=== PATIENT | male | born 1975 | race Caucasian/White ===

== ENCOUNTER → 2019-06-10 12:48 | Outpatient (CLI) | payer BC, SELFPAY ==
--- NOTE | 2019-06-10 13:06 | US_ITS ---
PROCEDURE: US SOFT TISSUE HEAD AND NECK CLINICAL INDICATION: LUMP IN SCALP Palpable area in the skull COMPARISON: No exams were available for comparison FINDINGS: No discrete sonographic abnormality is evident. Technologist notes that the area can be felt however, no sonographic abnormalities apparent. No cystic lesions or soft tissue masses. IMPRESSION: Unremarkable ultrasound of the palpable area of the scalp. If there is indeed a palpable nodule then, would consider CT for further evaluation Dictated by: Alexander Tellez MD 06/10/2019 15:21 Electronically signed by Alexander Tellez MD in [place] 06/10/2019 15:21
== END ==
PROVIDERS: PCP Family Medicine; Visit Provider Nurse Practitioner
DX: R22.0 Localized swelling, mass and lump, head (principal)
CPT/HCPCS: 76536

== ENCOUNTER 2019-11-05 19:19 | Emergency (ER) | payer BC, SELFPAY ==
[2019-11-05 19:30] VITALS: BP 127/78; PULSE 86; RESP 15; TEMP 36.6; O2SAT 99; BMI 32.3
--- NOTE | 2019-11-05 20:00 | HMH.EDSKAF ---
ED Disposition Clinical Impression: Foreign body (FB) in soft tissue Disposition: Home, Self-Care Condition on Discharge: Good Instructions: DI for Skin Abscess Prescriptions: clindamycin HCL [Clindamycin HCl 300mg Cap] 300 mg PO Q6 10 Days #40 cap Transmission Status: Pending to [id number] clindamycin HCL [Clindamycin HCl 300mg Cap] 300 mg PO Q6 10 Days #40 cap Transmission Status: Pending to [id number] Referrals: Morgan David MD [Primary Care Provider] - - Critical Care Critical Care Time: No Attestation: On 11/05/19, the high probability of a clinically significant, sudden or life threatening deterioration of the following system(s) required my full and direct attention, intervention and personal management. The time I documented below is in addition to time spent performing reported procedures but includes the following listed in this critical care notation. Medical Decision Making - Medical Records Medical records reviewed: Yes: I reviewed the patient's medical records. - Adolfo Inquiry Pt receiving controlled substance: No Vital Signs: 11/05/19 19:30 Temperature 97.9 F Temperature Source Oral Pulse Rate [Right Brachial] 86 Respiratory Rate 15 Blood Pressure [Right Arm] 127/78 Blood Pressure Mean [Right Arm] 94 Blood Pressure Source [Right Arm] Automatic Cuff Blood Pressure Position [Right Arm] Sitting 02 Sat by Pulse Oximetry 99 Oxygen Delivery Method Room Air - Lab Data Lab results reviewed: Yes: I reviewed the patient's lab results. Orders (Tests/Meds): ED MEDICATIONS Discontinued Medications Generic Name Dose Route Start Last Admin Trade Name Freq PRN Reason Stop Dose Admin Tetanus/Reduced Diphtheria/Acell Pertussis 0.5 ml 11/05/19 19:35 Adacel Tdap 0.5ml Syringe IM 11/05/19 19:36 .ONCE ONE Skin/Abscess/FB HPI - General Chief complaint: Skin/Abscess/Foreign Body Stated complaint: AO [id number] fish hook in neck Time Seen by Provider: 11/05/19 19:19 Mode of Arrival: Ambulatory Source of Information: Patient Limitations: No Limitations Description of Symptoms (Recalled from ER Triage Doc. by RN): Patient reports he was fishing with some friends when his hook stuck, while pulling to break the line the hook came back and hung in the left side of his neck. - History of Present Illness HPI narrative: 44-year-old male presents with a fishhook in his neck. Otherwise no other acute issues.Patient denies any recent cough or shortness of breath, patient denies any sore throat or headache, patient denies any loss of taste or smell, patient denies any malaise or fatigue, patient denies any abdominal pain nausea vomiting or diarrhea. - Related Data Home Medications Medication Instructions Recorded Confirmed Fexofenadine/Pseudoephedrine 1 each PO DAILY 02/09/18 02/09/18 [Vi-D 24 Hour Tablet] Fluticasone Propionate [Flonase 1 spr NS BID 02/09/18 02/09/18 50mcg nasal spray 16gm] Omeprazole [Omeprazole 20mg Tab] 20 mg PO DAILY 02/09/18 02/09/18 Previous Rx's Medication Instructions Recorded Cyclobenzaprine HCl 10 mg PO TID PRN #10 tab 02/09/18 [Cyclobenzaprine 10mg Tab] Ibuprofen [Motrin 600mg 600 mg PO Q6HP PRN #12 tab 02/09/18 Tablet] clindamycin HCL [Clindamycin HCl 300 mg PO Q6 10 Days #40 cap 11/05/19 300mg Cap] clindamycin HCL [Clindamycin HCl 300 mg PO Q6 10 Days #40 cap 11/05/19 300mg Cap] Allergies Allergy/AdvReac Type Severity Reaction Status Date / Time Sulfa (Sulfonamide Allergy Unknown Verified 11/05/19 19:38 Antibiotics) [SULFA (SULFONAMIDE ANTIBIOTICS)] [facility] History - Hepatitis A Screen Drug use history?: No High risk sexual behaviors?: No History of sexually transmitted infection?: No Currently employed?: No Childcare worker?: No Do you have indoor plumbing?: Yes Do you have electricity?: Yes Attestation statement:: This patient has be
[2019-11-05 20:09] VITALS: BP 121/79; PULSE 73; RESP 18; TEMP 36.7; O2SAT 98
== END 2019-11-05 20:11 | disposition home or self-care (01) ==
PROVIDERS: Emergency Provider Family Medicine; PCP Family Medicine
DX: S10.95XA Superficial foreign body of unspecified part of neck, initial encounter (principal); W22.8XXA Striking against or struck by other objects, initial encounter; Y92.89 Other specified places as the place of occurrence of the external cause; Z23 Encounter for immunization
CPT/HCPCS: 10120; 90471; 90715; 99282

== ENCOUNTER → 2020-02-12 15:44 | Outpatient (CLI) | payer BC, SELFPAY ==
[2020-02-12 17:04] LABS: Coronavirus 19 IgG Antibody Negative (Negative); Coronavirus 19 IgM Antibody Negative (Negative)
== END ==
PROVIDERS: Visit Provider Internal Medicine Gastroenterology
DX: Z01.89 Encounter for other specified special examinations (principal); Z12.11 Encounter for screening for malignant neoplasm of colon; K92.1 Melena
CPT/HCPCS: 36415; 86328

== ENCOUNTER 2020-02-14 08:59 | Day surgery (SDC) | payer BC, SELFPAY ==
[2020-02-11 14:48] VITALS: BMI 32.3
[2020-02-14 09:21] VITALS: BP 132/82; PULSE 64; RESP 18; TEMP 36.9; O2SAT 99
[2020-02-14 10:26] VITALS: O2SAT 98
--- NOTE | 2020-02-14 10:39 | P.PCN_ITS ---
[facility] Procedure Note Procedure Note:: Upper Endoscopy Procedure Report: Esophagogastroduodenoscopy with cold biopsies Endoscopost: Moose Ibarra II, MD Referring Physician: Dannielle STALLINGS Date of Procedure: February 14, 2020 Equipment: Olympus GIF 180 standard upper endoscope Sedation: MAC sedation Indications: Mr. Valladares is a 45-year-old gentleman who was having rectal bleeding/hematochezia. He does state that he had this for more than a week and this has resolved approximately 1 month ago. The patient does have chronic GERD and has been on omeprazole for years. He reports no heartburn, reflux or dysphagia. He presently reports no abdominal pain or melena. He has had no indigestion or dyspepsia. This is his first upper endoscopy. He reports no weight loss. At the time of his bleeding he was having crampy abdominal pain and diarrhea which has resolved. Procedure: Prior to the procedure, a history and physical exam was performed, and patient's medications and allergies were reviewed. The risks, benefits and alternatives of the sedation and procedure were discussed with the patient. All questions were answered and informed consent was obtained. The patient was brought to the procedure room. Patient identification and proposed procedure were verified by the physician and the nurse. The patient was placed in a left lateral decubitus position and the scope was passed under direct vision. Throughout the procedure, the patient's blood pressure, pulse, and oxygen saturations were monitored continuously. The upper GI endoscopy was accomplished without difficulty. The patient tolerated the procedure well. Findings: The scope was passed directly into the upper esophagus and advanced to the third portion of the duodenum. The post bulbar duodenum and duodenal bulb were normal with normal mucosa and conniventes. The scope was withdrawn through a normal duodenal bulb and pylorus into the stomach. There was some bile reflux with linear reactive gastropathy of the antrum. Biopsies were obtained from the antrum. There were a few gastric fundic gland polyps in the body and fundus and the largest of which was removed via cold biopsy. Upon retroflexion there was no hiatal hernia. 2 biopsies were taken in the antrum and along the lesser curvature for histology to rule out gastritis and/or H pylori. The scope was then withdrawn into the esophagus. There was a serrated Z line and one short tongue of salmon-colored mucosa that was biopsied to rule out Bonds's esophagus. There was no evidence of reflux esophagitis or Schatzki's ring. The remainder of the esophageal mucosa was normal. Impression: 1. Nonerosive GERD 2. Gastric fundic gland polyps 3. Mild linear reactive gastropathy Plan: I will follow-up the biopsies. The patient does have chronic GERD and will continue PPI therapy. I will proceed with diagnostic colonoscopy.
--- NOTE | 2020-02-14 10:42 | P.PN_ITS ---
[facility] Anesthesia Checklist - Patient Identification Patient Identification: Arm Band, Verbal (Name & ) - Structural Data Admitted From: Home Planned Operative Procedure/s: EGD, Colonoscopy Consent for Planned Operative Procedure(s) Verified: Yes Verified Documents: Surgical Consent, History and Physical - NPO Status Verified Time NPO: 00:00 - Chart Verification Results Verified: None - Additional verifications Anesthesia Reactions: No - Airway Assessment C-Spine Mobility Assessed: Yes TMJ Mobility Assessed: Yes Dentition: Good Dentition - Neurological Assessment Level of Consciousness: Awake, Alert, Appropriate, Follows Commands Hx Seizures: No Numbness or tingling in extremities: No - Anesthesia Plan Anesthesia Risk discussed: Yes Anesthesia Plan: Verified ASA Class: II Anesthesia Type: MAC [facility] History I have reviewed the patient's past medical history: Yes Medical History: Reports:: Asthma, Gastroesophageal Reflux Disease(GERD) Denies:: Cancer, Diabetes Mellitus Type 1, Diabetes Mellitus Type 2, Internal Pacemaker, MRSA, Seizures *Have you ever received a pneumonia vaccine?: No *Have you received a flu vaccine this season?: No Comment:: Obesity Anesthesia experience/problems:: None Other Surgeries: No: Pacemaker Amputation: No Fractures: No Comment: Hand sx - *Social History Last grade of school completed: High school graduate Smoking Status: Never smoker Alcohol Intake: never Substance Use Type: denies use *Occupational Status:: employed Housing: house Household Members: spouse *Travel in the last 8 weeks: Inside the [facility] Family Hx:: Other (NA)
[2020-02-14 11:00] VITALS: BP 121/73; PULSE 64; RESP 18; TEMP 36.6; O2SAT 97
--- NOTE | 2020-02-14 11:00 | P.PCN_ITS ---
[facility] Procedure Note Procedure Note:: Colonoscopy Procedure Report: Colonoscopy with cold snare polypectomy Endoscopist: Moose Ibarra II, MD Referring physician: Dannielle STALLINGS Date of Procedure: February 14, 2020 Equipment: Olympus 180 variable stiffness pediatric colonoscope Sedation: MAC sedation Indication: Mr. Valladares is a 45-year-old gentleman with bright red rectal bleeding that occurred for almost a week just over a month ago. I believe that he did have CT imaging to my knowledge but the report is not available. The patient does state that blood filled the commode. He had cramps and abdominal pain at that time. He did attribute this to an antibiotic (? Clindamycin). This resolved when he did discontinue this. He reports no present abdominal pain, weight loss, rectal bleeding or change in bowel habits. He reports no family history of colon cancer. This is his first colonoscopy performed for diagnostic purposes. Procedure: Prior to the procedure, a history and physical exam was performed, and patient's medications and allergies were reviewed. The risks, benefits and alternatives of the sedation and procedure were discussed with the patient. All questions were answered and informed consent was obtained. The patient was brought to the procedure room. Patient identification and proposed procedure were verified by the physician and the nurse. The patient was placed in a left lateral decubitus position and the scope was passed under direct vision. Throughout the procedure, the patient's blood pressure, pulse, and oxygen saturations were monitored continuously. The colonoscopy was accomplished without difficulty. The patient tolerated the procedure well. Findings: On digital rectal examination there was normal rectal tone. There were no external hemorrhoids. The colonoscope was introduced through the anal canal to the rectum and advanced to the cecum. The ileocecal valve and appendiceal orifice were identified. The scope was advanced a short distance into the ileum which appeared grossly normal. The scope was then withdrawn into the colon. There were 2 diminutive polyps in the transverse (3 mm) and rectum (3 mm) which were both removed via cold snare polypectomy. The remaining cecum, ascending, transverse, descending, sigmoid and rectum were grossly normal. There were no other mucosal abnormalities identified. Upon retroflexion within the rectum there were grade 1-2 internal hemorrhoids.The preparation was excellent throughout with Esmond Preparation Score of 9. The cecal time was 12 minutes. Impression: 1. Diminutive colonic polyps x2 2. Grade 1-2 internal hemorrhoids Plan: I will follow-up the polyp histology and recommend repeat screening/surveillance colonoscopy again in 7 to 10 years based upon the pathology. I would encourage bulk fiber supplementation on a maintenance basis.
[2020-02-14 11:10] VITALS: BP 111/70; PULSE 57; RESP 18; O2SAT 97
[2020-02-14 11:20] VITALS: BP 134/72; PULSE 67; RESP 18; O2SAT 100
[2020-02-14 11:40] VITALS: BP 118/72; PULSE 66; RESP 18; O2SAT 99
== END 2020-02-14 11:40 | disposition home or self-care (01) ==
LOC: OUTP 09:02
PROVIDERS: PCP Family Medicine; Visit Provider Internal Medicine Gastroenterology
PROC: 0DJ08ZZ Inspection of Upper Intestinal Tract, Via Natural or Artificial Opening Endoscopic (ICD-10-PCS; CPT 43235; principal; 2020-02-14 10:00)
DX: K63.5 Polyp of colon; K64.0 First degree hemorrhoids; K21.9 Gastro-esophageal reflux disease without esophagitis; K31.7 Polyp of stomach and duodenum; K31.9 Disease of stomach and duodenum, unspecified; J45.909 Unspecified asthma, uncomplicated; Z80.9 Family history of malignant neoplasm, unspecified; Z83.3 Family history of diabetes mellitus; Z88.2 Allergy status to sulfonamides; Z79.899 Other long term (current) drug therapy
CPT/HCPCS: 45385; 43239

== ENCOUNTER 2021-08-23 15:30 | Emergency (ER) | payer BC, SELFPAY ==
[2021-08-23 16:30] VITALS: BP 122/77; PULSE 74; RESP 18; TEMP 36.8; O2SAT 100; BMI 33.0
[2021-08-23 17:45] VITALS: BP 0/0; PULSE 0; RESP 0; TEMP -17.7; TEMP 0
== END 2021-08-23 17:49 | disposition left against medical advice (07) ==
LOC: UTC 15:36
PROVIDERS: Emergency Provider Nurse Practitioner Family; PCP Nurse Practitioner Family
DX: Z53.21 Procedure and treatment not carried out due to patient leaving prior to being seen by health care provider (principal)

== ENCOUNTER → 2022-07-23 06:02 | Outpatient (CLI) | payer BC, SELFPAY ==
[2022-07-23 06:57] LABS: Basophils # 0.1 K/mm3 (0-0.2); Basophils % 0.9 % (0.1-2.0); Eosinophils % 0.5 % (0.1-12.0); Hematocrit 36.9 % (42.0-52.0); Hemoglobin 12.1 g/dL (14.1-18.0); Lymphocytes # 1.7 K/mm3 (0.7-4.5); Lymphocytes % 31.3 % (10-50); Mean Corpuscular HGB Conc 32.8 g/dL (31.8-35.4); Mean Corpuscular Hemoglobin 28.1 pg (27.0-31.2); Mean Corpuscular Volume 85.8 fl (80-94); Mean Platelet Volume 8.1 fl (7.4-10.4); Monocytes # 0.3 K/mm3 (0.1-1.0); Monocytes % 6.2 % (1.7-9.3); Neutrophils # 3.3 K/mm3 (1.8-7.8); Neutrophils % 61.1 % (37.0-80.0); Platelet Count 220 K/mm3 (142-424); Red Cell Distribution Width 16.2 % (11.5-17.5); White Blood Count 5.3 K/mm3 (4.8-10.8)
[2022-07-23 07:11] LABS: Alanine Aminotransferase 28 U/L (12-78); Albumin Level 4.4 g/dl (3.5-5.0); Albumin/Globulin Ratio 1.9 (1.1-1.8); Alkaline Phosphatase 93 U/L (38-126); Aspartate Amino Transferase 26 U/L (17-59); Bilirubin,Total 1.3 mg/dl (0.2-1.3); Blood Urea Nitrogen 19 mg/dl (9-20); Calcium 8.8 mg/dl (8.4-10.2); Carbon Dioxide 28 mmol/L (22.0-30.0); Estimated Glomerular Filt Rate 91 ml/min (>60); GFR (African American) 110 ML/MIN (>60); Globulin 2.3 g/dL (1.3-3.2); Glucose 102 mg/dl (74-100); Total Protein,Serum 6.7 g/dl (6.3-8.2); Uric Acid 4.2 mg/dl (3.5-8.5)
[2022-07-23 07:13] LABS: Potassium 3.8 mmoL/L (3.5-5.1); Sodium 137 mmol/L (136-145)
[2022-07-23 07:16] LABS: C-Reactive Protein 0.9 mg/L (0-4)
[2022-07-23 07:19] LABS: Anion Gap 8.8 mEq/L (5-15)
[2022-07-23 07:27] LABS: 25-OH Vitamin D, Total 41.5 ng/mL (30-100)
[2022-07-23 08:01] LABS: Vitamin B12 450 pg/mL (239-931)
[2022-07-23 08:21] LABS: Erythrocyte Sedimentation Rate 13 mm/hr (0-15)
[2022-07-23 08:43] LABS: Chloride 104 mmol/L (98-107)
[2022-07-24 08:20] LABS: RA Latex Turbid. <10.0 IU/mL (<14.0)
[2022-07-26 15:52] LABS: Antinuclear Antibodies, IFA Negative (.)
[2022-07-30 15:09] LABS: Testosterone, Total, LC/MS 388.5 ng/dL (264.0-916.0)
== END ==
PROVIDERS: PCP Nurse Practitioner Family; Visit Provider Nurse Practitioner Family
DX: M79.10 Myalgia, unspecified site (principal); R53.83 Other fatigue; L29.9 Pruritus, unspecified; Z86.61 Personal history of infections of the central nervous system
CPT/HCPCS: 36415; 80053; 82306; 82607; 84402; 84403; 84443; 84550; 85025; 85651; 86038; 86140; 86225; 86235; 86431

== ENCOUNTER 2025-05-06 13:52 | Outpatient (CLI) | payer BC, SELFPAY ==
--- NOTE | 2025-05-06 13:59 | XR_ITS ---
FINAL REPORT TECHNIQUE: 5 views CLINICAL HISTORY: CERVICAL DISC DISEASE/NERVE ENTRAPMENT SYNDOME OF ARM FINDINGS: There is no fracture present. There is no malalignment. There are no significant degenerative changes. IMPRESSION: No acute process. Reviewed, Interpreted and Dictated by Marion Smith MD Transcribed by Allyson Hamm Authenticated and [facility]
--- OUTSIDE RECORDS SUMMARY | 2025-05-06 14:08 | XMS_ITS | Clinical Summary ---
Author Organization [facility] Address [address] [place] [address] Care Team Providers Care Systems Project Manager Name Role Phone Provider, No Known Primary Care Provider Unavail able Allergies Active Allergy Reactions Criticality Noted Date Comments Sulfa Antibiotics Shortness Of Breath High 8 Medications montelukast (SINGULAIR) 10 MG tablet 11/23/2022 Active Active Problems Problem Noted Date Diagnosed Date Bradycardia, sinus 11/24/2022 Assessment & Plan (11/24/2022 4:23 PM EDT): Sinus bradycardia on EKG today. Patient has been having episodes of low heart rate in the 40s associated with weakness. - 14-day Holter monitor for further evaluation and management. Heart murmur 11/24/2022 Assessment & Plan (11/24/2022 4:22 PM EDT): Echocardiogram for further evaluation. Family History Medical History Relation Name Comments Cancer Father Arthritis Mother Rheum arthritis Mother Relation Name Status Comments Father Mother Alive Social History Tobacco Use Types Packs/Day Years Used Date Smoking Tobacco: Never Smokeless Tobacco: Never Tobacco Cessation:Counseling Given: No Alcohol Use Standard Drinks/Week Comments Yes 0 (1 standard drink = 0.6 oz pur e alcohol) occ. Abuse Screen Answer Date Recorded Unsafe at Home or Work/School Not on file Feels Threatened by Someone? Not on file 01/2023 Does Anyone Keep You from Co ntacting Others or Doint Things Outside the Home? Not on file 02/20/2023 Physical Sign of Abuse Present Not on file 1 Housing Stability Answer Date Recorded Current Living Arrangements Not on file 01/2023 Potentially Unsafe Housing Conditions Not on cary e 02/20/2023 Family and Community Support Answer Raul e Recorded Help with Day-to-Day Activities Not on file 02/20/2023 Lonely or Isolated Not on file 02/20/2023 Employment Answer Date Recorded Do you want help finding or keeping work or a clair b? Not on file 02/20/2023 Disabilities Answer Date Recorded Concentrating, Remembering, or Making Decisions Difficulty Not on file 02/20/2023 Doing Errands Independently Difficulty Not on fi le 02/20/2023 Education Answer Date Recorded Help with school or training? Not on file Preferred Language Not on file 02/20/2023 Sex and Gender Information Value Date Recorded Sex Assigned at Not on file Legal Sex Male 10:46 AM EDT Gender Identity Not on file Sexual Orientation Not on file Last Filed Vital Signs Vital Sign Reading Time Taken Comments Blood Pressure 114/76 12/22/2022 3:29 PM EDT Pulse 59 11/24/2022 3:18 PM EDT Temperature - - Respiratory Rate - - Oxygen Saturation 99% 11/24/2022 3:18 PM EDT Inhaled Oxygen Concentration - - Weight 103 kg (226 lb) 12/22/2022 3:29 PM EDT Height 182.9 cm (6') 12/22/2022 3:29 PM EDT Body Mass Index 30.65 12/22/2022 3:29 PM EDT Plan of Treatment Health Maintenance Due Date Last Done Comments COLOGUARD 2022 COLON CANCER SCREENING 5 YEA R SIGMOIDOSCOPY 2022 COLONOSCOPY 2022 COLORECTAL CANCER SCREENING 2022 CT COLONOGRAPHY 2022 FECAL OCCULT BLOOD TEST 2022 FIT Testing (1 year) 2022 ANNUAL PHYSICAL 11/24/2022 HEPATITIS C SCREENING 11/24/2022 INFLUENZA VACCINE 12/13/2024 TDAP/TD VACCINES (2 - Td or Tdap) 11/04/2029 020 Pneumococcal Vaccine 0-49 Aged Out No longer eligible based on patient's age to complete this topic Insurance [facility] PPO Care Teams Systems Project Manager Relationship Specialty Start Date End Date Provider, No Known [facility] [place] [address] PCP - General 11/24/22
--- OUTSIDE RECORDS SUMMARY | 2025-05-06 14:08 | XMS_ITS | Encounter Summary ---
Author Organization [facility] Address [address] [place] [id number] Phone [email or web address] Care Team Providers Care Portable Router Operator Name Role Phone Unavailable Primary Care Provider Unavailabl e Encounter Details Date Type Department Care Team (Late st Contact Info) Description 04/24/2025 Telephone [facility] [place] [address] [facility] [address] [place] [address] Bonnie Servin RN [address] [place] [address] Social History Tobacco Use Types Packs/Day Years Used Date Smoking Tobacco: Former Cigarettes Smokeless Tobacco: Former Chew Quit: 02/09/2010 Alcohol Use Standard Drinks/Week Comments No 0 (1 standard drink = 0.6 oz pur e alcohol) Intimate Partner Violence Answer Date R ecorded Insults You Not on file 08/25/2020 Threatens You Not on file 08/25/2020 Screams at You Not on file 08/25/2020 Physically Hurt Not on file 08/25/2020 Intimate Partner Violence Score Not on file 08/25/2020 Alcohol Use Answer Date Recorded Alcohol Use Status No 01/29/2025 Depression Answer Date Recorded PHQ Total Score 0 01/29/2025 Stress Answer Date Recorded Stress in your Life Not on file 03/18/2024 Dealing with Stress 3 03/18/2024 Sex and Gender Information Value Date Recorded Sex Assigned at Not on file Legal Sex Male 7:22 AM CDT Gender Identity Not on file Sexual Orientation Not on file documented as of this encounter Miscellaneous Notes * Telephone Encounter - Bonnie Servin RN - 04/24/2025 9:[address]Ibarra is requesting for an BRIANA to be sent regarding TM ENT visit. RN attempted to call patientto see if he would sign an BRIANA. No answer, LVM for call back. PURNIMA RN Received call from IFTIKHAR Gordon who states TM declining to sign BRIANA for ENT visit at this time. Dr Ibarra notified. PURNIMA RN TURNING LATHE OPERATOR TURNING LATHE OPERATOR TURNING LATHE OPERATOR documented in this encounter Plan of Treatment Not on file documented as of this encounter Visit Diagnoses Not on filedocumented in this encounter
--- OUTSIDE RECORDS SUMMARY | 2025-05-06 14:08 | XMS_ITS | Clinical Summary ---
Author Organization [facility] Address [address] [place] [id number] Phone [email or web address] [email or web address] Care Team Providers Care Commercial Lending Assistant Name Role Phone Unavailable Primary Care Provider Unavailabl e Allergies Active Allergy Reactions Criticality Noted Date Comments Sulfa Antibiotics Shortness of breath High 8 Medications montelukast (SINGULAIR) 10 MG tablet Take 10 mg by mouth 1 (one) time each day. Active Active Problems Problem Noted Date Diagnosed Date Sensorineural hearing loss (SNHL) of both ears 0 01/30/2025 Other anxiety states 06/28/2010 Overview (10/11/2017): Examination for medicolegal reason 06/02/2010 Overview (10/11/2017): Acute upper respiratory infections of other [facility] 04/21/2010 Overview (10/11/2017): Other examination of ears and hearing 01/02/2008 Overview (10/11/2017): Encounter for occupational health examination Overview (10/11/2017): Allergic rhinitis due to other allergen 09/27/19 Overview (10/11/2017): Encounters Date Type Department Care Team Description 04/24/2025 Telephone [facility] [address] [place] [address] Bonnie Servin RN from Last 3 Months Immunizations Immunization Administration Dates Next Due Covid-19 ([employer] [place], 12yrs+) ([id number]) 2020,08/20/2020 Social History Tobacco Use Types Packs/Day Years Used Date Smoking Tobacco: Former Cigarettes Smokeless Tobacco: Former Chew Quit: 02/09/2010 Tobacco Cessation:Counseling Given: No Alcohol Use Standard Drinks/Week Comments No 0 [...] Sign Reading Time Taken Comments Blood Pressure 111/68 04/23/2025 9:11 AM EST Pulse 67 04/23/2025 9:11 AM EST Temperature 36.6 C (97.8 F) 04/23/2025 9:11 AM EST Respiratory Rate 18 04/23/2025 9:11 AM EST Oxygen Saturation 98% 04/23/2025 9:11 AM EST Inhaled Oxygen Concentration - - Weight 107 kg (235 lb) 04/23/2025 9:11 AM EST Height 185.4 cm (6' 1 ) 04/23/2025 9:11 AM EST Body Mass Index 31 04/23/2025 9:11 AM EST Plan of Treatment Health Maintenance Due Date Last Done Comments CT Colonography 1977 Colonoscopy 1977 Colorectal Cancer Screening Combo 1977 DNA Cologuard 1977 Dental Cleaning/Exam 1977 FIT or FOBT Test 1977 HIV Screening 1977 Hepatitis C Screening 1977 Sigmoidoscopy 1977 Annual Preventive Exam 1995 Hep B Infection Screening - Triple Screen 1995 Covid-19 Immunization ( season) 2025 03/09/2022, 09/16/2020, 08/20/2020 Influenza Immunization (#1) 2025 Tetanus Diphtheria and Pertussis Immunization (2 - Td or Tdap) 11/04/2029 11/05/2019 Hepatitis B Immunization Completed 002, 10/18/2001, 09/12/2001 HIB Immunization Aged Out No longer e ligible based on patient's age to complete this topic HPV Immunization Aged Out No longer e ligible based on patient's age to complete this topic Hepatitis A Immunization Aged Out No longer eligible based on patient's age to complete this topic Pneumococcal Immunization Aged Out No longer eligible based on patient's age to complete this topic Polio Immunization Aged Out No longer eligible based on patient's age to complete this topic Insurance [facility] [id number] [place] [address]
== END 2025-05-06 23:59 | disposition home or self-care (01) ==
LOC: RAD 13:55
PROVIDERS: PCP Nurse Practitioner; Visit Provider Nurse Practitioner
DX: M50.90 Cervical disc disorder, unspecified, unspecified cervical region (principal); G56.90 Unspecified mononeuropathy of unspecified upper limb
CPT/HCPCS: 72050